=== PATIENT | male | born 1960 | race Caucasian/White ===

== ENCOUNTER 2021-09-01 11:19 | Inpatient (IN) | payer OTHER ==
[2021-09-01] MEDS ORDERED: MAGNESIUM HYDROX 2400MG/30ML ORAL SUSPENSION 30 ML CUP PO PRN (13:59)
[2021-09-01] MEDS ORDERED: MAG HYDROX/AL HYDROX/SIMETH 30 ML UNIT-DOSE CUP PO PRN (13:59)
[2021-09-01] MEDS ORDERED: MENTHOL/PHENOL 1 EACH UD MM PRN (13:59)
[2021-09-01] MEDS ORDERED: NICOTINE 10 MG CARTRIDGE (INHALER) IH PRN (13:59)
[2021-09-01] MEDS ORDERED: ONDANSETRON *ODT* 4 MG TABLET SL PRN (13:59)
[2021-09-01] MEDS ORDERED: ACETAMINOPHEN 325 MG TABLET (FP) PO PRN ×2 (13:59)
[2021-09-01] MEDS ORDERED: METHOCARBAMOL 500 MG TABLET PO PRN (13:59)
[2021-09-01] MEDS ORDERED: MAGNESIUM CITRATE 300 ML BOTTLE PO PRN (13:59)
[2021-09-01] MEDS ORDERED: IBUPROFEN 400 MG TABLET (FP) PO PRN (13:59)
[2021-09-01 14:39] VITALS: BMI 24.5
[2021-09-01] MEDS ORDERED: ALBUTEROL SO4 HFA INHALER IH PRN (15:18)
[2021-09-01] MEDS: metFORMIN HCL 500 MG TABLET (FP) PO SCH (17:30)
[2021-09-01] MEDS: hydrOXYzine PAMOATE 25 MG CAPSULE (FP) PO SCH ×3 (17:32→23:00)
[2021-09-01] MEDS: THIAMINE HCL 100 MG TABLET (FP) PO SCH (23:00)
[2021-09-01] MEDS: MELATONIN 5 MG TABLETS PO SCH (23:00)
[2021-09-01] MEDS: BISMUTH SUBSALICYLATE 262 MG/15 ML BTL PO PRN (23:02)
[2021-09-02] MEDS: metFORMIN HCL 500 MG TABLET (FP) PO SCH ×2 (06:34→16:37)
[2021-09-02] MEDS: hydrOXYzine PAMOATE 25 MG CAPSULE (FP) PO SCH ×5 (06:34→22:34)
[2021-09-02] MEDS: BISMUTH SUBSALICYLATE 262 MG/15 ML BTL PO PRN (06:37)
[2021-09-02 10:55] LABS: HEMATOCRIT 33.5 % (35.4-49); HEMOGLOBIN 11.1 GM/dL (11.7-16.9); MCH 30.7 pg (25.7-33.7); MCHC 33.1 g/dl (32.0-35.9); MEAN CELL VOLUME 92.7 fl (80-96); MEAN PLT VOLUME 10.4 fl (7.5-11.1); PLATELET COUNT 174 10^3/uL (134-434); RBC 3.62 M/mm3 (4.00-5.60); RDW 15.3 % (11.9-15.9); WHITE BLOOD COUNT 6.5 K/mm3 (4.0-10.0)
[2021-09-02 11:01] LABS: ALBUMIN 2.9 g/dl (3.4-5.0); BLOOD UREA NITROGEN 21.4 mg/dL (7-18)
[2021-09-02 11:02] LABS: CALCIUM 8.4 mg/dL (8.5-10.1)
[2021-09-02] MEDS: diazePAM 5 MG TABLET PO SCH ×3 (11:04→22:34)
[2021-09-02] MEDS: PRENATAL VITAMINS W/ FOLIC ACID TABLET (FP) PO SCH (11:04)
[2021-09-02 11:06] LABS: BILIRUBIN,TOTAL 0.1 mg/dL (0.2-1); TOT PROT 6.3 g/dl (6.4-8.2)
[2021-09-02] MEDS ORDERED: traZODone HCL 50 MG TABLET (FP) PO SCH (22:00)
[2021-09-02] MEDS: MELATONIN 5 MG TABLETS PO SCH (22:34)
[2021-09-02] MEDS: traZODone HCL 50 MG TABLET (FP) PO SCH (22:34)
[2021-09-02] MEDS: THIAMINE HCL 100 MG TABLET (FP) PO SCH (22:34)
[2021-09-02] MEDS: INSULIN SLIDING SCALE (NOVOLOG) 1 VIAL SQ SCH (22:35)
[2021-09-03] MEDS: diazePAM 5 MG TABLET PO SCH ×4 (05:59→22:34)
[2021-09-03] MEDS: metFORMIN HCL 500 MG TABLET (FP) PO SCH ×2 (06:00→17:34)
[2021-09-03] MEDS: BISMUTH SUBSALICYLATE 262 MG/15 ML BTL PO PRN ×2 (06:01→17:36)
[2021-09-03] MEDS: hydrOXYzine PAMOATE 25 MG CAPSULE (FP) PO SCH ×5 (06:11→22:34)
[2021-09-03] MEDS: INSULIN SLIDING SCALE (NOVOLOG) 1 VIAL SQ SCH ×4 (06:11→22:34)
[2021-09-03] MEDS ORDERED: PENICILLIN G BENZATHINE 2,400,000 UNIT/4 ML PFS IM ONE (10:27)
[2021-09-03] MEDS: PRENATAL VITAMINS W/ FOLIC ACID TABLET (FP) PO SCH (10:34)
[2021-09-03] MEDS: traZODone HCL 50 MG TABLET (FP) PO SCH (22:33)
[2021-09-03] MEDS: MELATONIN 5 MG TABLETS PO SCH (22:34)
[2021-09-03] MEDS: THIAMINE HCL 100 MG TABLET (FP) PO SCH (22:34)
[2021-09-04] MEDS: hydrOXYzine PAMOATE 25 MG CAPSULE (FP) PO SCH ×5 (05:44→22:24)
[2021-09-04] MEDS: diazePAM 5 MG TABLET PO SCH ×3 (05:44→22:25)
[2021-09-04] MEDS: BISMUTH SUBSALICYLATE 262 MG/15 ML BTL PO PRN ×3 (05:45→22:28)
[2021-09-04] MEDS: metFORMIN HCL 500 MG TABLET (FP) PO SCH ×2 (06:13→16:44)
[2021-09-04] MEDS: INSULIN SLIDING SCALE (NOVOLOG) 1 VIAL SQ SCH ×4 (06:14→22:30)
[2021-09-04] MEDS: diazePAM 5 MG TABLET PO PRN ×2 (10:19→17:45)
[2021-09-04] MEDS: PRENATAL VITAMINS W/ FOLIC ACID TABLET (FP) PO SCH (10:19)
[2021-09-04] MEDS: MELATONIN 5 MG TABLETS PO SCH (22:24)
[2021-09-04] MEDS: traZODone HCL 50 MG TABLET (FP) PO SCH (22:24)
[2021-09-04] MEDS: THIAMINE HCL 100 MG TABLET (FP) PO SCH (22:24)
[2021-09-05] MEDS: hydrOXYzine PAMOATE 25 MG CAPSULE (FP) PO SCH ×2 (05:53→09:59)
[2021-09-05] MEDS ORDERED: diazePAM 5 MG TABLET PO SCH (06:00)
[2021-09-05] MEDS: INSULIN SLIDING SCALE (NOVOLOG) 1 VIAL SQ SCH ×2 (06:27→11:07)
[2021-09-05] MEDS: metFORMIN HCL 500 MG TABLET (FP) PO SCH (06:27)
[2021-09-05 09:40] VITALS: BP 95/54; PULSE 72; TEMP 96.8
[2021-09-05] MEDS: PRENATAL VITAMINS W/ FOLIC ACID TABLET (FP) PO SCH (09:59)
[2021-09-06] MEDS ORDERED: diazePAM 5 MG TABLET PO ONE (06:00)
== END 2021-09-05 13:13 | disposition home or self-care (01) | DRG 897 ==
LOC: YASAS 11:19 → UNDOADMIN 15:30 → Y3N 15:30
PROVIDERS: ADMIT Allergy & Immunology; ATTEND Allergy & Immunology
PROC: HZ2ZZZZ Detoxification Services for Substance Abuse Treatment (ICD-10-PCS; principal; 2021-09-01)
DX: F10.230 Alcohol dependence with withdrawal, uncomplicated (principal); F11.20 Opioid dependence, uncomplicated; F14.20 Cocaine dependence, uncomplicated; F31.81 Bipolar II disorder; F12.20 Cannabis dependence, uncomplicated; F17.210 Nicotine dependence, cigarettes, uncomplicated; F10.282 Alcohol dependence with alcohol-induced sleep disorder; E11.9 Type 2 diabetes mellitus without complications; Z79.84 Long term (current) use of oral hypoglycemic drugs; J45.909 Unspecified asthma, uncomplicated; A53.0 Latent syphilis, unspecified as early or late; Z86.19 Personal history of other infectious and parasitic diseases; Z62.810 Personal history of physical and sexual abuse in childhood; Z91.410 Personal history of adult physical and sexual abuse; Z91.51 Personal history of suicidal behavior
CPT/HCPCS: 36415; 80053; 82962; 85027; 86593; 86780; C9803; U0003; U0005